=== PATIENT | female | born 1990 | race Caucasian/White ===

== ENCOUNTER 2017-10-26 14:00 | Emergency (ER) | payer BC ==
[2017-10-26] MEDS ORDERED: Benzocaine 20% Topical Spray UD MUCMEM ONE (14:09)
[2017-10-26] MEDS ORDERED: Lidocaine 2% Viscous Solution 15 ML Cup PO ONE (14:09)
--- NOTE | 2017-10-26 14:43 | EDM.PDOC ---
ED HPI GENERAL MEDICAL PROBLEM - General Chief Complaint: ENT Problem Stated Complaint: TOOTHACHE Time Seen by Provider: 10/26/17 14:08 Source of Information: Reports: Patient History Limitations: Reports: No Limitations - History of Present Illness INITIAL COMMENTS - FREE TEXT/NARRATIVE: History of present illness: []Patient has had 2 weeks of dental pain. She's tried to call her dentist however she cannot find one that takes her insurance. Is any fevers, chills or drainage from her gums. Review of systems: As per history of present illness and below otherwise all systems reviewed and negative. Past medical history: As per history of present illness and as reviewed below otherwise noncontributory. Surgical history: As per history of present illness and as reviewed below otherwise noncontributory. Social history: No reported history of drug or alcohol abuse. Family history: As per history of present illness and as reviewed below otherwise noncontributory. Physical exam: General: Well developed, well nourished in NAD HEENT: Atraumatic, normocephalic, pupils reactive, negative for conjunctival pallor or scleral icterus, mucous membranes moist, throat clear, neck supple, nontender, trachea midline. Fractured tooth on the left upper without gingival erythema, drainage or facial swelling Lungs: Clear to auscultation, breath sounds equal bilaterally, chest nontender. Heart: S1S2, regular, negative for clicks, rubs, or JVD. Abdomen: Soft, nondistended, nontender. Negative for masses or hepatosplenomegaly. Negative for costovertebral tenderness. Pelvis: Stable nontender. Genitourinary: Deferred. Rectal: Deferred. Extremities: Atraumatic, negative for cords or calf pain. Neurovascular unremarkable. Neuro: Awake, alert, oriented. Cranial nerves II through XII unremarkable. Cerebellum unremarkable. Motor and sensory unremarkable throughout. Exam nonfocal. Diagnostics: [] Therapeutics: []Dental balls given, no signs of infection at this time Impression: []Chronic dental pain Plan: []Dental balls, ibuprofen, Tylenol for pain follow-up with dentist Definitive disposition and diagnosis as appropriate pending reevaluation and review of above. Right Upper Oral/Mouth Pain Score (Numeric/FACES): 6 - Related Data Allergies Allergy/AdvReac Type Severity Reaction Status Date / Time codeine Allergy Excitabilit Verified 10/26/17 14:25 y Home Meds: Home Meds . [No Known Home Meds] 10/26/17 [History] Past Medical History - Past Health History Medical/Surgical History: Denies Medical/Surgical History - Infectious Disease History Infectious Disease History: Reports: Chicken Pox Social & Family History - Family History Family Medical History: Noncontributory - Tobacco Use Smoking Status *Q: Current Every Day Smoker Years of Tobacco use: 6 Packs/Tins Daily: 0.5 - Caffeine Use Caffeine Use: Reports: Coffee, Soda - Recreational Drug Use Recreational Drug Use: No ED ROS ENT - Review of Systems Review Of Systems: See Below (The history of present illness) ED EXAM, ENT - Physical Exam Exam: See Below (See history of present illness) Course - Vital Signs Last Recorded V/S: Last Vital Signs Temp 97.9 F 10/26/17 14:26 Pulse 63 10/26/17 14:26 Resp 16 10/26/17 14:26 BP 123/86 10/26/17 14:26 Pulse Ox 99 10/26/17 14:26 - Orders/Labs/Meds Meds: Medications Discontinued Medications Generic Name Dose Route Start Last Admin Trade Name Freq PRN Reason Stop Dose Admin Benzocaine 2 each 10/26/17 14:09 10/26/17 14:33 Hurricaine One 20% MUCMEM 10/26/17 14:10 2 each ONETIME ONE Administration Lidocaine HCl 15 ml 10/26/17 14:09 10/26/17 14:33 Xylocaine 2% Viscous PO 10/26/17 14:10 15 ml ONETIME ONE Administration Departure - Departure Time of Disposition: 14:43 Disposition: Home, Self-Care 01 Condition: Good Clinical Impression: Dental implant pain Qualifiers: Encounter type: initial encounter Qualified Code(s): T85.848A - Pain due to other internal prosthetic devices, implants and grafts, initial encounter - Discharge Information Referrals: PCP,None [Primary Care Provider] - Additional Instructions: The following information is given to patients seen in the emergency department who are being discharged to home. This information is to outline your options for follow-up care. We provide all patients seen in our emergency department with a follow-up referral. The need for follow-up, as well as the timing and circumstances, are variable depending upon the specifics of your emergency department visit. If you don't have a primary care physician on staff, we will provide you with a referral. We always advise you to contact your personal physician following an emergency department visit to inform them of the circumstance of the visit and for follow-up with them and/or the need for any referrals to a consulting specialist. The emergency department will also refer you to a specialist when appropriate. This referral assures that you have the opportunity for follow-up care with a specialist. All of these measure are taken in an effort to provide you with optimal care, which includes your follow-up. Under all circumstances we always encourage you to contact your private physician who remains a resource for coordinating your care. When calling for follow-up care, please make the office aware that this follow-up is from your recent emergency room visit. If for any reason you are refused follow-up, please contact the [facility] at and asked to speak to the emergency department charge nurse. [facility] [address] [place] [id number]
== END 2017-10-26 14:52 | disposition home or self-care (01) ==
LOC: MW.ED 14:00
DX: T85.848A Pain due to other internal prosthetic devices, implants and grafts, initial encounter (principal); K08.89 Other specified disorders of teeth and supporting structures; F17.210 Nicotine dependence, cigarettes, uncomplicated; Z88.5 Allergy status to narcotic agent
CPT/HCPCS: 99282; A9270

== ENCOUNTER 2018-06-13 11:17 | Emergency (ER) | payer BC ==
[2018-06-13] MEDS ORDERED: Sodium Chloride 0.9% 1,000 ML IV ONE (11:20)
[2018-06-13] MEDS ORDERED: HYDROmorphone 1 MG/ML Syringe IVPUSH ONE (11:20)
[2018-06-13] MEDS ORDERED: Sodium Chloride 0.9% 10 ML Syringe FLUSH PRN (11:20)
[2018-06-13] MEDS ORDERED: Sodium Chloride 0.9% 2.5 ML Syringe FLUSH PRN (11:20)
[2018-06-13] MEDS ORDERED: Ondansetron 4 MG/2 ML SDV IVPUSH ONE (11:20)
--- NOTE | 2018-06-13 11:25 | EDM.PDOC ---
ED HPI GENERAL MEDICAL PROBLEM - General Chief Complaint: Lower Extremity Injury/Pain Stated Complaint: FELL & BROKE ANKLE Time Seen by Provider: 06/13/18 11:20 - History of Present Illness INITIAL COMMENTS - FREE TEXT/NARRATIVE: HISTORY AND PHYSICAL: History of present illness: The patient is a healthy 27-year-old female who presents via EMS with complaints of pain and injury to her right ankle after she slipped and fell landing on top of it. She did not hit her head pass out or blackout and has no head neck or back pain and had no preceding symptomatology such as fevers chills chest pain shortness of breath dizziness or lightheadedness. The patient says she has no proximal leg knee or hip pain on the right and no other extremity complaints. The patient received fentanyl per EMS 100 g and she had a few chips this morning to eat at approximately 8 AM. She otherwise is in good health and was at work doing her normal activities when this occurred. She says that her foot feels numb and tingly but she can feel in the toes and the distal foot on the right. Review of systems: As per history of present illness and below otherwise all systems reviewed and negative. Past medical history: As per history of present illness and as reviewed below otherwise noncontributory. Surgical history: As per history of present illness and as reviewed below otherwise noncontributory. Social history: No reported history of drug or alcohol abuse. Family history: As per history of present illness and as reviewed below otherwise noncontributory. Physical exam: General: Well-developed well-nourished mildly overweight female who is nontoxic and looks uncomfortable in the ED but vital signs are noted by me. HEENT: Atraumatic, normocephalic, negative for conjunctival pallor or scleral icterus, mucous membranes moist, throat clear, neck supple, nontender, trachea midline. There is no evidence of any scalp defects deformities or soft tissue injuries and there are no midline step-offs tenderness defects of the cervical spine Lungs: Clear to auscultation, breath sounds equal bilaterally, chest nontender. Heart: S1S2, regular rhythm slightly tachycardic rate of my evaluation but no overt murmurs Abdomen: Soft, nondistended, nontender. NABS Pelvis: Stable nontender. No lateral hip tenderness Genitourinary: Deferred. Rectal: Deferred. Extremities: Atraumatic with full range of motion of all extremities with the exception of the right ankle where there is an obvious deformity tenting of the medial malleolus skin but no actual skin break. There is tenderness in this area and the distal foot is nontender without defects or deformities as is the proximal tib-fib and knee. Pulses are intact distally and sensation is also intact. There is good cap refill distally, negative for cords or calf pain. Neurovascular unremarkable. Neuro: Awake, alert, oriented. Cranial nerves II through XII unremarkable. Cerebellum unremarkable. Motor and sensory unremarkable throughout. Exam nonfocal. Back: There are no midline step-offs tenderness defects of the thoracic or lumbar spine and no posterior pelvis tenderness Diagnostics: CBC CMP serum hCG x-ray of the right tib-fib and right ankle Therapeutics: Patient received fentanyl 100 g per EMS prior to arrival, IV fluids, Dilaudid and Zofran, conscious sedation protocol per anesthesia, Ativan The [employer] on-call was contacted for conscious sedation to reduce the obvious deformity of the ankle. X-rays have just been performed and I will review them prior to performing this procedure. The patient is aware that the ankle does need to be reduced whether it's fractured are not and that this is an emergent procedure Procedure note: For conscious sedation please see the [employer]'s note. After consents were signed and the procedure was explained to the patient she was given adequate sedation per protocol and using gentle traction the dislocation was reduced easily without complication. Pulses were maintained throughout the procedure. A short leg post mold and sugar tong splint were applied by myself and nursing without complication. A postreduction x-ray will be ordered. I will follow-up with that results and send all images to [facility]. 1150 case was discussed with through the circulating nurse in the operating room as he is doing a procedure. He is aware of the case and knows that it will be sent to the emergency department. The case was also discussed with the ER physician Dr. Wang at 1153 and he accepts the patient for transfer. The patient is aware that she needs to be transferred as we have no orthopedics coverage and she will need operative intervention of this fracture dislocation. All postreduction films have been reviewed we will package for transfer. She is also aware that she is nothing by mouth and I will hang maintenance fluids. Postreduction film shows good alignment of the bony architecture and the fractures. We will send all films to [facility] and [place]. Patient is telling nursing she feels very worked up and anxious and still has pain so I will give her some Ativan and re-dose some Dilaudid. Impression: Trimalleolar fracture dislocation of right ankle Definitive disposition and diagnosis as appropriate pending reevaluation and review of above. right ankle Pain Score (Numeric/FACES): 10 - Related Data Allergies Allergy/AdvReac Type Severity Reaction Status Date / Time codeine Allergy Excitabilit Verified 06/13/18 11:29 y Home Meds: Home Meds . [No Known Home Meds] 10/26/17 [History] Past Medical History - Past Health History Medical/Surgical History: Denies Medical/Surgical History - Infectious Disease History Infectious Disease History: Reports: Chicken Pox Social & Family History - Family History Family Medical History: Noncontributory - Caffeine Use Caffeine Use: Reports: Coffee, Soda Review of Systems - Review of Systems Review Of Systems: ROS reveals no pertinent complaints other than HPI. ED EXAM, GENERAL - Physical Exam Exam: See Below (See dictation) Course - Vital Signs Last Recorded V/S: Last Vital Signs Temp 36.3 C 06/13/18 11:29 Pulse 73 06/13/18 12:17 Resp 18 06/13/18 12:17 BP 120/74 06/13/18 12:17 Pulse Ox 96 06/13/18 12:17 - Orders/Labs/Meds Orders: Active Orders 24 hr Category Date Time Status Ankle 2V Rt [CR] Stat Exams 06/13/18 12:08 Ordered Dextrose 5%-0.45% NaCl [Dextrose 5%-1/2 NS] 1,000 ml Med 06/13/18 12:15 Active IV ASDIRECTED Sodium Chloride 0.9% [Saline Flush] Med 06/13/18 11:20 Active 10 ml FLUSH ASDIRECTED PRN Sodium Chloride 0.9% [Saline Flush] Med 06/13/18 11:20 Active 2.5 ml FLUSH ASDIRECTED PRN Saline Lock Insert [OM.PC] Stat Oth 06/13/18 11:20 Ordered Medication Orders Dextrose/Sodium Chloride (Dextrose 5%-1/2 Ns) 1,000 mls @ 150 mls/hr IV ASDIRECTED KATELYNN Sodium Chloride (Saline Flush) 10 ml FLUSH ASDIRECTED PRN PRN Reason: Keep Vein Open Last Admin: 06/13/18 11:31 Dose: 10 ml Sodium Chloride (Saline Flush) 2.5 ml FLUSH ASDIRECTED PRN PRN Reason: Keep Vein Open Last Admin: 06/13/18 11:31 Dose: 2.5 ml Labs: Laboratory Tests 06/13/18 06/13/18 06/13/18 Range/Units 11:25 11:35 11:35 WBC 7.04 (4.0-11.0) K/uL RBC 4.15 L (4.30-5.90) M/uL Hgb 12.1 (12.0-16.0) g/dL Hct 36.9 (36.0-46.0) % MCV 88.9 (80.0-98.0) fL MCH 29.2 (27.0-32.0) pg MCHC 32.8 (31.0-37.0) g/dL RDW Std Deviation 43.5 (28.0-62.0) fl RDW Coeff of Lynnette 13 (11.0-15.0) % Plt Count 230 (150-400) K/uL MPV 11.30 (7.40-12.00) fL Neut % (Auto) 59.0 (48.0-80.0) % Lymph % (Auto) 30.8 (16.0-40.0) % [place] % (Auto) 8.0 (0.0-15.0) % Eos % (Auto) 1.6 (0.0-7.0) % Baso % (Auto) 0.6 (0.0-1.5) % Neut # (Auto) 4.2 (1.4-5.7) K/uL Lymph # (Auto) 2.2 (0.6-2.4) K/uL [place] # (Auto) 0.6 (0.0-0.8) K/uL Eos # (Auto) 0.1 (0.0-0.7) K/uL Baso # (Auto) 0.0 (0.0-0.1) K/uL Nucleated RBC % 0.0 /100WBC Nucleated RBCs # 0 K/uL Sodium 134 L (136-145) mmol/L Potassium 4.1 (3.5-5.1) mmol/L Chloride 102 (98-107) mmol/L Carbon Dioxide 24.6 (21.0-32.0) mmol/L BUN 7 (7.0-18.0) mg/dL Creatinine 0.9 (0.6-1.0) mg/dL Est Cr Clr Drug Dosing 86.34 mL/min Estimated GFR (MDRD) > 60.0 ml/min Glucose 96 (74-106) mg/dL Calcium 8.2 L (8.5-10.1) mg/dL Total Bilirubin 0.4 (0.2-1.0) mg/dL AST 15 (15-37) IU/L ALT 17 (14-63) IU/L Alkaline Phosphatase 55 (46-116) U/L Total Protein 7.0 (6.4-8.2) g/dL Albumin 3.4 (3.4-5.0) g/dL Globulin 3.6 (2.6-4.0) g/dL Albumin/Globulin Ratio 0.9 (0.9-1.6) HCG, Qual NEGATIVE (NEG) Meds: Medications Generic Name Dose Route Start Last Admin Trade Name Freq PRN Reason Stop Dose Admin Dextrose/Sodium Chloride 1,000 mls @ 150 mls/hr 06/13/18 12:15 Dextrose 5%-1/2 Ns IV ASDIRECTED KATELYNN Sodium Chloride 10 ml 06/13/18 11:20 06/13/18 11:31 Saline Flush FLUSH 10 ml ASDIRECTED PRN Administration Keep Vein Open Sodium Chloride 2.5 ml 06/13/18 11:20 06/13/18 11:31 Saline Flush FLUSH 2.5 ml ASDIRECTED PRN Administration Keep Vein Open Discontinued Medications Generic Name Dose Route Start Last Admin Trade Name Freq PRN Reason Stop Dose Admin Hydromorphone HCl 1 mg 06/13/18 11:20 06/13/18 11:30 Dilaudid IVPUSH 06/13/18 11:21 1 mg ONETIME ONE Administration Hydromorphone HCl 0.5 mg 06/13/18 12:24 Dilaudid IVPUSH 06/13/18 12:25 ONETIME ONE Sodium Chloride 1,000 mls @ 999 mls/hr 06/13/18 11:20 06/13/18 11:30 Normal Saline IV 06/13/18 12:20 999 mls/hr STAT ONE Administration Propofol Confirm 06/13/18 11:52 06/13/18 12:17 Diprivan 50 Ml Administered 06/13/18 11:53 Not Given Dose 50 mls @ as directed .ROUTE .STK-MED ONE Lidocaine HCl Confirm 06/13/18 11:53 06/13/18 12:10 Xylocaine-Mpf 1% Administered 06/13/18 11:54 Not Given Dose 5 mls @ as directed .ROUTE .STK-MED ONE Lidocaine HCl 5 ml 06/13/18 11:49 06/13/18 12:17 Xylocaine-Mpf 1% INJECT 06/13/18 11:50 5 ml ONETIME ONE Administration Lorazepam 0.5 mg 06/13/18 12:24 Ativan IVPUSH 06/13/18 12:25 ONETIME ONE Midazolam HCl 2 mg 06/13/18 11:49 06/13/18 12:17 Versed 1 Mg/Ml IVPUSH 06/13/18 11:50 2 mg ONETIME ONE Administration Midazolam HCl Confirm 06/13/18 11:53 06/13/18 12:10 Versed 1 Mg/Ml Administered 06/13/18 11:54 Not Given Dose 2 mg .ROUTE .STK-MED ONE Ondansetron HCl 4 mg 06/13/18 11:20 06/13/18 11:30 Zofran IVPUSH 06/13/18 11:21 4 mg ONETIME ONE Administration Propofol Confirm 06/13/18 11:51 06/13/18 12:17 Diprivan 20 Ml Administered 06/13/18 11:52 Not Given Dose 200 mg .ROUTE .STK-MED ONE Propofol 200 mg 06/13/18 12:18 06/13/18 12:18 Diprivan 20 Ml IVPUSH 06/13/18 12:19 200 mg ONETIME ONE Administration Departure - Departure Time of Disposition: 12:12 Disposition: DC/Tfer to Acute Hospital 02 Condition: Good Clinical Impression: Trimalleolar fracture of ankle, closed Qualifiers: Encounter type: initial encounter Laterality: right Qualified Code(s): S82.851A - Displaced trimalleolar fracture of right lower leg, initial encounter for closed fracture Fracture dislocation of ankle Qualifiers: Encounter type: initial encounter Fracture type: closed Laterality: right Qualified Code(s): S82.891A - Other fracture of right lower leg, initial encounter for closed fracture - Discharge Information Referrals: PCP,None [Primary Care Provider] - Forms: ED Department Discharge - My Orders Last 24 Hours: My Active Orders 06/13/18 11:20 Sodium Chloride 0.9% [Saline Flush] 10 ml FLUSH ASDIRECTED PRN Sodium Chloride 0.9% [Saline Flush] 2.5 ml FLUSH ASDIRECTED PRN Saline Lock Insert [OM.PC] Stat 06/13/18 12:08 Ankle 2V Rt [CR] Stat 06/13/18 12:15 Dextrose 5%-0.45% NaCl [Dextrose 5%-1/2 NS] 1,000 ml IV ASDIRECTED - Assessment/Plan Last 24 Hours: My Active Orders 06/13/18 11:20 Sodium Chloride 0.9% [Saline Flush] 10 ml FLUSH ASDIRECTED PRN Sodium Chloride 0.9% [Saline Flush] 2.5 ml FLUSH ASDIRECTED PRN Saline Lock Insert [OM.PC] Stat 06/13/18 12:08 Ankle 2V Rt [CR] Stat 06/13/18 12:15 Dextrose 5%-0.45% NaCl [Dextrose 5%-1/2 NS] 1,000 ml IV ASDIRECTED
[2018-06-13] MEDS ORDERED: Midazolam 1 MG/ML 2 ML SDV IVPUSH ONE (11:49)
--- NOTE | 2018-06-13 11:50 | CR ---
INDICATION: Pain. TECHNIQUE: Two views. IMPRESSION: Lateral and posterior fracture angulation at the distal fibular diaphysis and apparent dislocation of the tibiotalar ankle joint. Plain film of the ankle recommended for further characterization. Dictated by Linden Scott MD @ Jun 13 2018 11:48AM Signed by Dr. Linden Scott @ Jun 13 2018 11:49AM
[2018-06-13] MEDS ORDERED: Propofol 200 MG/20 ML SDV ONE (11:51)
--- NOTE | 2018-06-13 11:51 | CR ---
Indication: Fall Technique: Two views of the right ankle were obtained. Comparison: None Findings: The talar dome is intact. A comminuted fracture of the distal tibia is identified. This involves the medial malleolus and the posterior malleolus. The tibia is dislocated 1 shaft with medial in relation to the talus. A fracture of the distal fibula is identified. There is approximately 45 degrees of angulation medial and anterior. Impression: Fracture/dislocation of the ankle. Dictated by Christine Young MD @ Jun 13 2018 11:48AM Signed by Dr. Christine Young @ Jun 13 2018 11:50AM
[2018-06-13] MEDS ORDERED: Midazolam 1 MG/ML 2 ML SDV ONE (11:53)
[2018-06-13 12:08] LABS: CHLORIDE,CL 102 mmol/L (98-107); SODIUM,NA 134 mmol/L (136-145)
[2018-06-13] MEDS ORDERED: Dextrose 5%-0.45% NaCl 1,000 ML IV SCH (12:15)
[2018-06-13] MEDS ORDERED: Propofol 200 MG/20 ML SDV IVPUSH ONE (12:18)
[2018-06-13] MEDS ORDERED: LORazepam 2 MG/ML SDV IVPUSH ONE (12:24)
[2018-06-13] MEDS ORDERED: HYDROmorphone 2 MG/ML Syringe IVPUSH ONE (12:24)
--- NOTE | 2018-06-13 12:31 | PCM.PREANE ---
Preanesthetic Assessment - Anesthesia/Transfusion/Family Hx Anesthesia History: Prior Anesthesia Without Reaction Family History of Anesthesia Reaction: No Transfusion History: No Prior Transfusion(s) - Review of Systems General: No Symptoms Pulmonary: Shortness of Breath (states sob at times. Has quit smoking) Cardiovascular: No Symptoms Gastrointestinal: No Symptoms Neurological: No Symptoms Other: Reports: None - Physical Assessment NPO Status Date: 06/13/18 NPO Status Time: 08:00 Pulse: 96 O2 Sat by Pulse Oximetry: 96 Respiratory Rate: 18 Blood Pressure: 137/95 Vital Signs: Last Vital Signs Temp 36.3 C 06/13/18 11:29 Pulse 73 06/13/18 12:17 Resp 18 06/13/18 12:17 BP 120/74 06/13/18 12:17 Pulse Ox 96 06/13/18 12:17 Height: 1.68 m Weight: 107.048 kg Mental Status: Alert & Oriented x3 Dentition: Reports: Normal Dentition Thyro-Mental Finger Breadths: 3 ROM/Head Extension: Full Lungs: Clear to Auscultation Cardiovascular: Regular Rate - Lab Values: Laboratory Last Values WBC 7.04 K/uL (4.0-11.0) 06/13/18 11:25 RBC 4.15 M/uL (4.30-5.90) L 06/13/18 11:25 Hgb 12.1 g/dL (12.0-16.0) 06/13/18 11:25 Hct 36.9 % (36.0-46.0) 06/13/18 11:25 MCV 88.9 fL (80.0-98.0) 06/13/18 11:25 MCH 29.2 pg (27.0-32.0) 06/13/18 11:25 MCHC 32.8 g/dL (31.0-37.0) 06/13/18 11:25 RDW Std Deviation 43.5 fl (28.0-62.0) 06/13/18 11:25 RDW Coeff of Lynnette 13 % (11.0-15.0) 06/13/18 11:25 Plt Count 230 K/uL (150-400) 06/13/18 11:25 MPV 11.30 fL (7.40-12.00) 06/13/18 11:25 Neut % (Auto) 59.0 % (48.0-80.0) 06/13/18 11:25 Lymph % (Auto) 30.8 % (16.0-40.0) 06/13/18 11:25 Spencer % (Auto) 8.0 % (0.0-15.0) 06/13/18 11:25 Eos % (Auto) 1.6 % (0.0-7.0) 06/13/18 11:25 Baso % (Auto) 0.6 % (0.0-1.5) 06/13/18 11:25 Neut # (Auto) 4.2 K/uL (1.4-5.7) 06/13/18 11:25 Lymph # (Auto) 2.2 K/uL (0.6-2.4) 06/13/18 11:25 Spencer # (Auto) 0.6 K/uL (0.0-0.8) 06/13/18 11:25 Eos # (Auto) 0.1 K/uL (0.0-0.7) 06/13/18 11:25 Baso # (Auto) 0.0 K/uL (0.0-0.1) 06/13/18 11:25 Nucleated RBC % 0.0 /100WBC 06/13/18 11:25 Nucleated RBCs # 0 K/uL 06/13/18 11:25 Sodium 134 mmol/L (136-145) L 06/13/18 11:35 Potassium 4.1 mmol/L (3.5-5.1) 06/13/18 11:35 Chloride 102 mmol/L (98-107) 06/13/18 11:35 Carbon Dioxide 24.6 mmol/L (21.0-32.0) 06/13/18 11:35 BUN 7 mg/dL (7.0-18.0) 06/13/18 11:35 Creatinine 0.9 mg/dL (0.6-1.0) 06/13/18 11:35 Est Cr Clr Drug Dosing 86.34 mL/min 06/13/18 11:35 Estimated GFR (MDRD) > 60.0 ml/min 06/13/18 11:35 Glucose 96 mg/dL (74-106) 06/13/18 11:35 Calcium 8.2 mg/dL (8.5-10.1) L 06/13/18 11:35 Total Bilirubin 0.4 mg/dL (0.2-1.0) 06/13/18 11:35 AST 15 IU/L (15-37) 06/13/18 11:35 ALT 17 IU/L (14-63) 06/13/18 11:35 Alkaline Phosphatase 55 U/L (46-116) 06/13/18 11:35 Total Protein 7.0 g/dL (6.4-8.2) 06/13/18 11:35 Albumin 3.4 g/dL (3.4-5.0) 06/13/18 11:35 Globulin 3.6 g/dL (2.6-4.0) 06/13/18 11:35 Albumin/Globulin Ratio 0.9 (0.9-1.6) 06/13/18 11:35 HCG, Qual NEGATIVE (NEG) 06/13/18 11:35 - Allergies Allergies/Adverse Reactions: Allergies Allergy/AdvReac Type Severity Reaction Status Date / Time codeine Allergy Excitabilit Verified 06/13/18 11:29 y - Acknowledgements Anesthesia Type Planned: MAC Pt an Appropriate Candidate for the Planned Anesthesia: Yes Alternatives and Risks of Anesthesia Discussed w Pt/Guardian: Yes Pt/Guardian Understands and Agrees with Anesthesia Plan: Yes PreAnesthesia Questionnaire - Past Health History Medical/Surgical History: Denies Medical/Surgical History HEENT History: Reports: None Cardiovascular History: Reports: None, SOB on Exertion (occasionally) Respiratory History: Reports: Other (See Below) (ex smoker) Gastrointestinal History: Reports: None Genitourinary History: Reports: UTI, Recurrent [employer] History: Reports: None Musculoskeletal History: Reports: None Other Musculoskeletal History: fractured right ankle today Neurological History: Reports: None Psychiatric History: Reports: None Endocrine/Metabolic History: Reports: None Hematologic History: Reports: None Immunologic History: Reports: None Oncologic (Cancer) History: Reports: None Dermatologic History: Reports: None - Infectious Disease History Infectious Disease History: Reports: Chicken Pox - Past Surgical History GI Surgical History: Reports: Appendectomy - SUBSTANCE USE Smoking Status *Q: Never Smoker Recreational Drug Use History: No - HOME MEDS Home Medications: Home Meds . [No Known Home Meds] 10/26/17 [History] - CURRENT (IN HOUSE) MEDS Current Meds: Current Medications Dextrose/Sodium Chloride (Dextrose 5%-1/2 Ns) 1,000 mls @ 150 mls/hr IV ASDIRECTED KATELYNN Sodium Chloride (Saline Flush) 10 ml FLUSH ASDIRECTED PRN PRN Reason: Keep Vein Open Last Admin: 06/13/18 11:31 Dose: 10 ml Sodium Chloride (Saline Flush) 2.5 ml FLUSH ASDIRECTED PRN PRN Reason: Keep Vein Open Last Admin: 06/13/18 11:31 Dose: 2.5 ml Discontinued Medications Hydromorphone HCl (Dilaudid) 1 mg IVPUSH ONETIME ONE Stop: 06/13/18 11:21 Last Admin: 06/13/18 11:30 Dose: 1 mg Hydromorphone HCl (Dilaudid) 0.5 mg IVPUSH ONETIME ONE Stop: 06/13/18 12:25 Sodium Chloride (Normal Saline) 1,000 mls @ 999 mls/hr IV STAT ONE Stop: 06/13/18 12:20 Last Admin: 06/13/18 11:30 Dose: 999 mls/hr Propofol (Diprivan 50 Ml) Confirm Administered Dose 50 mls @ as directed .ROUTE .STK-MED ONE Stop: 06/13/18 11:53 Last Admin: 06/13/18 12:17 Dose: Not Given Lidocaine HCl (Xylocaine-Mpf 1%) Confirm Administered Dose 5 mls @ as directed .ROUTE .STK-MED ONE Stop: 06/13/18 11:54 Last Admin: 06/13/18 12:10 Dose: Not Given Lidocaine HCl (Xylocaine-Mpf 1%) 5 ml INJECT ONETIME ONE Stop: 06/13/18 11:50 Last Admin: 06/13/18 12:17 Dose: 5 ml Lorazepam (Ativan) 0.5 mg IVPUSH ONETIME ONE Stop: 06/13/18 12:25 Midazolam HCl (Versed 1 Mg/Ml) 2 mg IVPUSH ONETIME ONE Stop: 06/13/18 11:50 Last Admin: 06/13/18 12:17 Dose: 2 mg Midazolam HCl (Versed 1 Mg/Ml) Confirm Administered Dose 2 mg .ROUTE .STK-MED ONE Stop: 06/13/18 11:54 Last Admin: 06/13/18 12:10 Dose: Not Given Ondansetron HCl (Zofran) 4 mg IVPUSH ONETIME ONE Stop: 06/13/18 11:21 Last Admin: 06/13/18 11:30 Dose: 4 mg Propofol (Diprivan 20 Ml) Confirm Administered Dose 200 mg .ROUTE .STK-MED ONE Stop: 06/13/18 11:52 Last Admin: 06/13/18 12:17 Dose: Not Given Propofol (Diprivan 20 Ml) 200 mg IVPUSH ONETIME ONE Stop: 06/13/18 12:19 Last Admin: 06/13/18 12:18 Dose: 200 mg
--- NOTE | 2018-06-13 12:34 | PCM48HPAN ---
Post Anesthesia Note - EVALUATION WITHIN 48HRS OF ANESTHETIC Vital Signs in Normal Range: Yes Patient Participated in Evaluation: Yes (pt aldreter score 9) Respiratory Function Stable: Yes Airway Patent: Yes Cardiovascular Function Stable: Yes (vss) Hydration Status Stable: Yes (infusing lr) Pain Control Satisfactory: No (nurse administering analgesia post procedure. Pt had recieved Fentanyl,dil) Nausea and Vomiting Control Satisfactory: Yes Mental Status Recovered: Yes (tenzin 9) Pulse Rate: 96 SaO2: 96 Resp Rate: 18 Blood Pressure: 137/95
--- NOTE | 2018-06-13 12:43 | CR ---
INDICATION: Follow up production. TECHNIQUE: Two views. IMPRESSION: Reduced tibiotalar dislocation. Essentially anatomic alignment of the medial malleolar fracture with minimal diastasis. Distal fibular fracture with half shaft with persistent dorsal lateral diastasis. Probable posterior malleolar fracture in anatomic alignment. Fiberglass cast. Dictated by Linden Scott MD @ Jun 13 2018 12:39PM Signed by Dr. Linden Scott @ Jun 13 2018 12:42PM
== END 2018-06-13 12:58 ==
LOC: MW.ED 11:17
DX: S82.851A Displaced trimalleolar fracture of right lower leg, initial encounter for closed fracture (principal); Z88.5 Allergy status to narcotic agent; W01.0XXA Fall on same level from slipping, tripping and stumbling without subsequent striking against object, initial encounter
CPT/HCPCS: 27818; 36415; 73590; 73600; 80053; 84703; 85025; 96361; 96374; 96375; 96376; 99152; 99153; 99285; J1170; J2001; J2060; J2250; J2405; J2704; J7040; J7042; 99283